=== PATIENT | male | born 1980 | race Hispanic/Latino ===

== ENCOUNTER 2018-05-02 21:20 | Emergency (ER) | payer SELFPAY | END 2018-05-02 23:06 | disposition home or self-care (01) | LOC: EDH 21:20 | DX: S29.019A Strain of muscle and tendon of unspecified wall of thorax, initial encounter (principal); J06.9 Acute upper respiratory infection, unspecified; I10 Essential (primary) hypertension; X58.XXXA Exposure to other specified factors, initial encounter; Y93.89 Activity, other specified; Y92.89 Other specified places as the place of occurrence of the external cause; Y99.8 Other external cause status | CPT/HCPCS: 99281 ==

== ENCOUNTER 2024-08-10 06:52 | Emergency (ER) | payer SELFPAY ==
[~2024-08-10] VITALS: Ht 160 cm; Wt 79.4 kg
[~2024-08-10 06:52] MED LIST: CIPR-278 PO; IBUP-2070 PO
--- NOTE | 2024-08-10 06:55 | NUR ---
UA CUP PROVIDED
--- NOTE | 2024-08-10 07:22 | ERN ---
General Chief Complaint: Abdominal Pain Stated Complaint: ABD PAIN Time Seen by MD: 07:00 History of Present Illness Initial Comments 44-year-old male, otherwise healthy, who presents for epigastric and right-sided upper quadrant pain for the last three days. He reports on and off pain right upper quadrant. He feels nauseous without vomiting. No diarrhea. No fevers. He reports that he is eating and he does not think that it is affecting his discomfort. Allergies: Coded Allergies: No Known Drug Allergies (Unverified Allergy, Unknown, 09/18/22) Home Meds Active Scripts Ibuprofen (Ibuprofen) 600 Mg Tablet, 600 MG PO Q8H PRN for PAIN, #15 TAB Prov:REA VICKERS [facility] 09/18/22 Ciprofloxacin HCl (Cipro) 500 Mg Tablet, 1 TAB PO BID for 5 Days, #20 TAB 0 Refills Prov:REA VICKERS [facility] 09/18/22 Past Medical History Past Medical History: No Pertinent History Past Surgical History: None ROS Dictation CONSTITUTIONAL: No chills, no fever, no weakness, no diaphoresis, no malaise. HEAD/FACE: No signs of trauma. EENT: No eye pain, no blurred vision, no tearing, no double vision, no ear pain, no ear discharge, no nose pain, no nasal congestion, no throat pain, no throat swelling, no mouth pain. RESPIRATORY: No cough, no orthopnea, no SOB, no stridor, no wheezing. CARDIOVASCULAR: No chest pain, no edema, no palpitations, no syncope. GASTROINTESTINAL/ABDOMINAL: Abdominal pain right upper quadrant pain and nausea GENITOURINARY: No abnormal discharge, no dysuria, no frequent urination, no hematuria. No complaints of pain in the genitals. MUSCULOSKELETAL: No back pain, no gout, no joint pain, no joint swelling, no muscle pain, no muscle stiffness, no neck pain. INTEGUMENTARY: No change in color, no change in hair/nails, no dryness, no lesion, no lumps, no rash. NEUROLOGICAL/PSYCH: No anxiety, not depressed, no emotional problem, no headache, no numbness, no pre-existing deficit, no history of seizures, no tremors, no weakness. HEMATOLOGIC/LYMPHATIC: Not anemic, no history of blood clots, no apparent bleeding, no bruising, glands not swollen. All Systems Negative, Except as Noted. Physical Exam Physical Exam Dictation VITAL SIGNS: Reviewed. GENERAL APPEARANCE: Alert, oriented x3, no acute distress, obese. HEAD AND FACE: Non-traumatic. EYES: PERRL, pink conjunctivas, eyelid no trauma, anterior chamber clear. EARS: Pinnas intact and no signs of trauma or erythema. Ear canals clear and no discharge. TMs no erythema. NOSE: No discharge, no bleeding. OROPHARYNX: Mouth normal, teeth no caries, tongue pink. Pharynx clear, no erythema. Tonsils no exudates, no abscesses noted. Mucous membrane moist. NECK: Supple, non-tender, no thyromegaly, no masses, no JVD, no bruits. BREAST: Deferred. CHEST: No tenderness, no crepitus, no paradoxical movement, no retractions. LUNGS: Clear, well-ventilated, symmetric, no rales, no wheezing, no rhonchi, no stridor, good breath sounds bilaterally. HEART: Regular rate, regular rhythm, no murmur, no gallops. VASCULAR: No peripheral edema. ABDOMEN: Right upper quadrant tenderness RECTAL: Deferred. GENITAL: Deferred. NEUROLOGICAL: Normal speech, gross motor function intact, gross sensory function intact. MUSCULOSKELETAL: Neck nontender, full range of motion, back nontender, full range of motion. EXTREMITIES: Nontender, full range of motion. SKIN: Color pink, dry, no turgor, no rash, no lacerations, no abrasions, no contusions. LYMPHATICS: Deferred. Results Laboratory and Microbiology Lab and Micro Result Laboratory Tests Test 08/10/24 07:23 08/10/24 07:24 White Blood Count 5.9 K/uL (4.8-10.8) Red Blood Count 4.57 MIL/uL (4.50-6.20) Hemoglobin 14.0 g/dL (14.0-18.0) Hematocrit 40.2 % (42-54) L Mean Corpuscular Volume 88.0 fL (79-99) Mean Corpuscular Hemoglobin 30.6 pg (27.0-33.0) Mean Corpuscular Hemoglobin Concent 34.8 g/dL (32.0-36.0) Red Cell Distribution Width 12.5 % (11.0-15.5) Platelet Count 211 K/uL (130-400) Mean Platelet Volume 10.3 fL (7.5-10.5) Immature Granulocyte % (Auto) 0.3 % (0-1) Neutrophils (%) (Auto) 66.0 % (40.0-77.0) Lymphocytes (%) (Auto) 24.8 % (21.0-51.0) Monocytes (%) (Auto) 5.8 % (3.0-13.0) Eosinophils (%) (Auto) 2.4 % (0.0-8.0) Basophils (%) (Auto) 0.7 % (0.0-5.0) Neutrophils # (Auto) 3.9 K/uL (1.8-7.7) Lymphocytes # (Auto) 1.5 K/uL (1.0-4.8) Monocytes # (Auto) 0.3 K/uL (0.1-1.0) Eosinophils # (Auto) 0.14 K/uL (0.00-0.70) Basophils # (Auto) 0.04 K/uL (0.00-0.20) Absolute Immature Granulocyte (auto 0.02 K/uL (0-1) Nucleated Red Blood Cells 0.0 % (0.0-0.19) Sodium Level 139 mmol/L (136-145) Potassium Level 3.9 mmol/L (3.5-5.1) Chloride Level 107 mmol/L (101-111) Carbon Dioxide Level 28 mmol/L (21-32) Blood Urea Nitrogen 18 mg/dL (7-18) Creatinine 0.6 mg/dL (0.5-1.3) Glomerular Filtration Rate Calc 121 mL/min (>90) Random Glucose 107 mg/dL (70-105) H Total Calcium 8.3 mg/dL (8.5-10.1) L Total Bilirubin 0.7 mg/dL (0.2-1.0) Direct Bilirubin 0.1 mg/dL (0.0-0.3) Aspartate Amino Transf (AST/SGOT) 13 U/L (10-37) Alanine Aminotransferase (ALT/SGPT) 31 U/L (12-78) Alkaline Phosphatase 66 U/L (50-136) Troponin I High Sensitivity 6 ng/L (4-75) Total Protein 7.0 g/dL (6.0-8.3) Albumin 3.5 g/dL (3.5-5.0) Lipase 35 U/L (16-77) Urine Color LIGHT-YELLOW (YELLOW) Urine Appearance CLEAR (CLEAR) Urine pH 6.5 (5.0-8.0) Urine Specific Mallory 1.025 (1.001-1.031) Urine Protein NEGATIVE mg/dL (NEGATIVE) Urine Glucose (UA) NEGATIVE mg/dL (NEGATIVE) Urine Ketones NEGATIVE mg/dL (NEGATIVE) Urine Occult Blood NEGATIVE (NEGATIVE) Urine Nitrate NEGATIVE (NEGATIVE) Urine Bilirubin NEGATIVE mg/dL (NEGATIVE) Urine Urobilinogen 0.2 mg/dL (0.2-1.0) Urine Leukocyte Esterase NEGATIVE Nuria/uL MDM CC: upper abd pain, RUQ pain Historian: patient Comorbidities: none Limitations by social determinates of health: none Ddx: Gastritis, biliary disease, lung disease, other Vital signs: Stable, remained stable in the ER. EKG (independently ordered and interpreted by me): Sinus rhythm, rate of 64, normal axis, good R-wave progression, intervals are stable. No STEMI. Right upper quadrant ultrasound (independently interpreted by me): No obvious stones, gallbladder wall on CBD with a normal limits, relatively unremarkable. Chest x-ray (independently interpreted by me): No cardiomegaly focal infiltrates or pleural effusions. Labs (independently ordered and interpreted by me): Urinalysis is normal, CBC is normal. Differential normal. Metabolic panel is normal. Liver enzymes within normal limits as well as the lipase. Treatment in ED: Toradol IV. Based on the clinical presentation I have very low suspicion for any life threats. No signs of sepsis or surgical pathology. Soft nontender nondistended abdomen. Stable vital signs and lab work. No signs of biliary disease, likely a gastritis. We will start on Protonix, Maalox and recommend PCP follow up. Reassessment: Vitals are stable. ED Course Orders Procedure Category Date Status Time Cbc With Differential LAB 08/10/24 Complete 07:05 Troponin I High LAB 08/10/24 Complete Sensitivity 07:05 Urinalysis Profile LAB 08/10/24 Complete 07:05 Us Abdominal Ruq\Ltd US 08/10/24 Taken 07:05 12 Lead Ekg Tracing- EKG 08/10/24 Complete Technical 07:05 Chest 1vw RAD 08/10/24 Taken 07:05 Lipase LAB 08/10/24 Complete 07:05 Basic Metabolic Panel LAB 08/10/24 Complete 07:05 Hepatic Function Panel LAB 08/10/24 Complete 07:05 Ketorolac PHA 08/10/24 Complete Tromethamine 15mg/Ml 07:30 Gi Cocktail (Maalox PHA 08/10/24 Verified 30ml) 08:30 Current Medications Medications (Trade) Dose Ordered Sig/Abrahan Route PRN Reason Start Time Stop Time Status Last Admin Dose Admin Ketorolac Tromethamine (toRADol) 15 mg ONCE ONCE IV 08/10/24 07:30 08/10/24 07:31 DC 08/10/24 08:13 Vital Signs Date Time Temp Pulse Resp B/P (MAP) Pulse Ox O2 Delivery O2 Flow Rate FiO2 08/10/24 07:09 97.9 69 16 124/88 98 Room Air* 0 21 08/10/24 06:53 97.9 69 16 124/88 98 Room Air DX & DISP Disposition: Discharge Departure Impression: Primary Impression: Gastritis Condition: Stable Scripts Mag Hydrox/Al Hydrox/Simeth (Maalox Maximum Strength Susp) 400 Mg-400 Mg-40 Mg/5 Ml Oral.susp 20 ML PO Q6H for 5 Days, #355 ML 0 Refills Prov: RANI BOLAND DO 08/10/24 Pantoprazole Sodium (Protonix) 40 Mg Ectab 1 TAB PO DAILY for 30 Days, #30 TAB 0 Refills Prov: RANI BOLAND DO 08/10/24 Additional Instructions: Your symptoms are consistent with a gastritis, which is inflammation or irritation of the stomach lining. Your blood work (CBC with differential, metabolic panel, liver enzymes, lipase, urinalysis) is unremarkable. The ultrasound of the gallbladder does not show any gallstones or biliary disease. I have prescribed pantoprazole. Take as prescribed, once daily in the morning. I recommend taking this for at least two weeks. I have prescribed Maalox maximum strength. You can use as needed for relief of stomach pain or burning. You can take this up to 4 times a day only as needed. I recommend dietary modification. Avoid acidic foods such as tomatoes and vinegar based foods. Avoid spicy foods, greasy meals, caffeine, carbonated drinks, and alcohol. Avoid NSAIDs such as ibuprofen, naproxen, and aspirin. Eat small, frequent meals rather than large meals. Do not eat late at night. Please follow up with your primary doctor. You may need further studies. Please return to the emergency department if you have any significant symptoms such as severe persistent abdominal pain, vomiting blood, black tarry stools, fainting, or inability to tolerate foods. Referrals: SOFYA SHELLEY MD (PCP) RANI BOLAND DO Aug 10, 2024 07:22
--- NOTE | 2024-08-10 07:28 | EKG ---
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
[2024-08-10 07:54] LABS: BASOPHILS # (AUTO) 0.04 K/uL (0.00-0.20); BASOPHILS % (AUTO) 0.7 % (0.0-5.0); EOSINOPHILS # (AUTO) 0.14 K/uL (0.00-0.70); EOSINOPHILS % (AUTO) 2.4 % (0.0-8.0); HEMATOCRIT 40.2 % (42-54); IMMATURE GRANULOCYTE ABSOLUTE 0.02 K/uL (0-1); LYMPHOCYTES # (AUTO) 1.5 K/uL (1.0-4.8); LYMPHOCYTES % (AUTO) 24.8 % (21.0-51.0); MEAN CORPUSCULAR HEMOGLOBIN 30.6 pg (27.0-33.0); MEAN CORPUSCULAR HGB CONC 34.8 g/dL (32.0-36.0); MONOCYTES # (AUTO) 0.3 K/uL (0.1-1.0); MONOCYTES % (AUTO) 5.8 % (3.0-13.0); NEUTROPHILS # (AUTO) 3.9 K/uL (1.8-7.7); PLATELET COUNT (AUTO) 211 K/uL (130-400); RED BLOOD CELL COUNT(AUTO) 4.57 MIL/uL (4.50-6.20); RED CELL DISTRIBUTION WIDTH 12.5 % (11.0-15.5); WHITE BLOOD COUNT (AUTO) 5.9 K/uL (4.8-10.8)
[2024-08-10 07:56] LABS: APPEARANCE,URINE CLEAR (CLEAR); BILIRUBIN,URINE NEGATIVE (NEGATIVE); COLOR,URINE LIGHT-YELLOW (YELLOW); GLUCOSE, URINE (UA) NEGATIVE (NEGATIVE); KETONES,URINE NEGATIVE (NEGATIVE); LEUKOCYTE ESTERASE ,URINE NEGATIVE Leu/uL (NEGATIVE); NITRATE,URINE NEGATIVE (NEGATIVE); OCCULT BLOOD,URINE NEGATIVE (NEGATIVE); PH,URINE 6.5 (5.0-8.0); PROTEIN,URINE NEGATIVE (NEGATIVE); UROBILINOGEN,URINE 0.2 mg/dL (0.2-1.0)
[2024-08-10 08:04] LABS: ADD UA MICROSCOPIC NO
[2024-08-10 08:08] LABS: ALBUMIN 3.5 g/dL (3.5-5.0); BILIRUBIN,DIRECT 0.1 mg/dL (0.0-0.3); BILIRUBIN,TOTAL 0.7 mg/dL (0.2-1.0); CREATININE 0.6 mg/dL (0.5-1.3); POTASSIUM 3.9 mmol/L (3.5-5.1)
[2024-08-10] MEDS: ketOROlac 15MG/ML VIAL (15MG/ML) IV ONE (08:13)
[2024-08-10] MEDS ORDERED: PANT40TA55 PO (08:16)
[2024-08-10] MEDS ORDERED: MAG-55 PO (08:16)
[2024-08-10 08:24] VITALS: BP 132/86; PULSE 60; RESP 18; TEMP 97.9; O2SAT 98
[2024-08-10] MEDS: MAG/ALUM/SIMETH 30 ML UDCUP PO ONE (08:47)
[2024-08-10] MEDS: DICYCLOMINE HCL 10 MG/5 ML ML PO ONE (08:47)
--- NOTE | 2024-08-10 10:04 | HMCIMG ---
Exam Type: CHEST 1VW Clinical Information: chest pain Comparison: None Findings: The lungs are clear of infiltrates. The heart is normal in size. The bony and soft tissue structures of the chest are unremarkable. Impression: Clear lungs.
--- NOTE | 2024-08-10 10:14 | HMCIMG ---
Exam Type: US ABDOMINAL RUQ\E\LTD Clinical Information: Adominal Pain Comparison: None Findings: The liver shows normal echogenicity and is otherwise unremarkable. The liver measures less than 16 cm in length. Doppler evaluation shows patent portal and hepatic veins. The gallbladder shows no significant abnormalities. Specifically, no calculi are seen. The gallbladder wall thickness is 2 mm. No bile duct dilatation is noted. The common bile duct measures 4 mm. The right kidney measures 11.7 x 5.7 cm. The right kidney is normal in size and echogenicity. No hydronephrosis or renal calculi are seen. There are no renal masses. The pancreas is suboptimally visualized. IMPRESSION: Normal right upper quadrant abdominal ultrasound.
== END 2024-08-10 08:58 | disposition home or self-care (01) ==
LOC: EDH 06:52
DX: K29.70 Gastritis, unspecified, without bleeding (principal); Z79.899 Other long term (current) drug therapy
CPT/HCPCS: 99285; 96374; 76705; 71045; 80076; 84484; 80048; 83690; 85025; 81003; 36415; 93005; J1885